=== PATIENT | female | born 1995 | race American Indian/Alaskan Native ===

== ENCOUNTER 2018-10-13 08:00 | Emergency (ER) | payer MEDICAID, OTHER ==
[2018-10-13 08:41] LABS: Basophils % (Auto) 0.3 % (0.0-1.8); Eosinophils # (Auto) 0.1 K/mm3 (0.0-0.4); Hematocrit 40.8 % (30.3-42.9); Hemoglobin 13.9 gm/dl (10.1-14.3); Lymphocytes # (Auto) 0.4 K/mm3 (1.2-5.4); Lymphocytes % (Auto) 4.1 % (13.4-35.0); Mean Corpuscular HGB Conc 34 % (30-34); Mean Corpuscular Volume 97 fl (79-97); Monocytes # (Auto) 0.6 K/mm3 (0.0-0.8); Monocytes % (Auto) 6.4 % (0.0-7.3); Platelet Count 300 K/mm3 (140-440); Red Blood Count 4.23 M/mm3 (3.65-5.03)
[2018-10-13 08:46] LABS: Bilirubin,Urine NEG (Negative); Blood,Urine NEG (Negative); Color,Urine Yellow (Yellow); Mucus,Urine FEW /HPF; Urobilinogen,Urine < 2.0 mg/dL (<2.0)
[2018-10-13 08:54] LABS: Alanine Aminotransferase 20 units/L (7-56); BUN/Creatinine Ratio 13; Blood Urea Nitrogen 9 mg/dL (7-17); Calcium 9.3 mg/dL (8.4-10.2); Hemolysis Index 61
[2018-10-13] MEDS ORDERED: ZOFRAN IV ONE ×2 (09:55→12:05)
[2018-10-13] MEDS ORDERED: NACL 0.9% 1000 ML 1,000 ML IV ONE (09:55)
[2018-10-13] MEDS ORDERED: LEVSIN SL SL ONE (09:55)
[2018-10-13 10:00] LABS: HCG Qualitative,Urine Negative (Negative)
--- NOTE | 2018-10-13 10:02 | Emergency Department Report ---
ED Abdominal Pain HPI - General Chief Complaint: Abdominal Pain Stated Complaint: BACK PAIN/VOMITING Time Seen by Provider: 10/13/18 09:38 Source: patient Mode of arrival: Ambulatory Limitations: No Limitations - History of Present Illness Initial Comments: 23-year-old -[place] female presents to the emergency room complaining of acute abdominal pain and chronic back pain. She also complains of nausea and vomiting since Sunday. Patient reports that the abdominal pain is crampy as constant worse with sitting and standing and better with rest. Patient denies any vaginal bleeding vaginal discharge. Patient is 0. Last menstrual period was 10/06/2018. Patient has a past medical history borderline diabetes has no surgical history smokes Black and miles. MD Complaint: abdominal pain Location: LUQ, epigastric Severity scale (0 -10): 8 Quality: cramping Consistency: constant Improves With: rest Worsens With: movement ( sitting and standing) Associated Symptoms: nausea, vomiting - Related Data LMP Date: 10/06/18 Previous Rx's Medication Instructions Recorded Last Taken Type Fexofenadine/Pseudoephedrine 1 each PO DAILY #30 tab.er.24h 12/26/15 Unknown Rx [Adrianna-D 24 Hour Tablet] Gentamicin 0.3% Ophth Soln 2 drops OP Q4H #1 bottle 12/26/15 Unknown Rx predniSONE [Deltasone] 20 mg PO QDAY #5 tab 12/26/15 Unknown Rx Dicyclomine [Bentyl] 10 mg PO QID #12 capsule 10/13/18 Unknown Rx Hyoscyamine Subl [Levsin Sl 0.125 0.125 mg SL Q6HR PRN #12 tab 10/13/18 Unknown Rx TAB] Ondansetron [Zofran Odt] 4 mg PO Q8HR PRN #12 tab.rapdis 10/13/18 Unknown Rx Allergies Allergy/AdvReac Type Severity Reaction Status Date / Time No Known Allergies Allergy Verified 01/31/14 10:22 ED Review of Systems ROS: Stated complaint: BACK PAIN/VOMITING Other details as noted in HPI Comment: All other systems reviewed and negative Gastrointestinal: abdominal pain, nausea, vomiting Musculoskeletal: back pain ED Past Medical Hx - Past Medical History Previous Medical History?: No Additional medical history: MORBID OBESITY - Surgical History Past Surgical History?: No Additional Surgical History: Romulus teeth removed - Social History Smoking Status: Never Smoker Substance Use Type: None - Medications Home Medications: Home Medications Medication Instructions Recorded Confirmed Last Taken Type Fexofenadine/Pseudoephedrine 1 each PO DAILY #30 tab.er.24h 12/26/15 Unknown Rx [Adrianna-D 24 Hour Tablet] Gentamicin 0.3% Ophth Soln 2 drops OP Q4H #1 bottle 12/26/15 Unknown Rx predniSONE [Deltasone] 20 mg PO QDAY #5 tab 12/26/15 Unknown Rx Dicyclomine [Bentyl] 10 mg PO QID #12 capsule 10/13/18 Unknown Rx Hyoscyamine Subl [Levsin Sl 0.125 0.125 mg SL Q6HR PRN #12 tab 10/13/18 Unknown Rx TAB] Ondansetron [Zofran Odt] 4 mg PO Q8HR PRN #12 tab.rapdis 10/13/18 Unknown Rx ED Physical Exam - General Limitations: No Limitations General appearance: alert, in no apparent distress - Head Head exam: Present: atraumatic, normocephalic - Eye Eye exam: Present: normal appearance - ENT ENT exam: Present: mucous membranes moist - Neck Neck exam: Present: normal inspection - Respiratory Respiratory exam: Present: normal lung sounds bilaterally. Absent: respiratory distress - Cardiovascular Cardiovascular Exam: Present: tachycardia - GI/Abdominal GI/Abdominal exam: Present: soft, tenderness (upper quadrant and epigastric), normal bowel sounds. Absent: distended - Extremities Exam Extremities exam: Present: normal inspection, full ROM - Neurological Exam Neurological exam: Present: alert, oriented X3 - Psychiatric Psychiatric exam: Present: normal affect, normal mood - Skin Skin exam: Present: warm, dry, intact, normal color. Absent: rash ED Course Vital Signs 10/13/18 08:11 Temperature 99.0 F Pulse Rate 105 H Respiratory 16 Rate Blood Pressure 173/84 O2 Sat by Pulse 98 Oximetry ED Medical Decision Making - Lab Data Result diagrams: 10/13/18 08:20 10/13/18 08:20 - Radiology Data Radiology results: report reviewed Patient: ALLISON RODGERS MR#: [id number] : 1995 Acct:[id number] Age/Sex: 23 / F ADM Date: 10/13/18 Loc: ED Attending Dr: Ordering Physician: MADONNA ALARCON Date of Service: 10/13/18 Procedure(s): CT abdomen pelvis w con Accession Number(s): [id number] cc: CONNOR CalderonMADONNA PERKINS CT ABDOMEN AND PELVIS WITH IV CONTRAST, 10/13/2018 INDICATION: Acute epigastric pain and nausea. TECHNIQUE: Following the administration of intravenous contrast, multiple axial CT images of the abdomen and pelvis were acquired. Sagittal and coronal reformats were obtained. All CT performed at this facility utilize dose reduction techniques including automated exposure control, iterative reconstruction and weight based dosing when appropriate to reduce patient radiation dose to as low as reasonably achievable. COMPARISON: No prior studies are available for comparison. FINDINGS: Limited imaging of the bilateral lung bases demonstrate no evidence of acute abnormality. Abdomen: The liver, gallbladder, spleen, pancreas, bilateral adrenal glands and bilateral kidneys show no evidence of acute abnormality. There is no evidence of bowel obs truction. The appendix is not clearly identified, but no right lower quadrant inflammatory changes are seen. Pelvis: The urinary bladder and uterus appear within normal limits. No large amount of free pelvic fluid is seen. Evaluation of bony structures demonstrates no evidence of acute bony ab normality. IMPRESSION: 1. No CT evidence of acute inflammatory or obstructive process within the abdomen or pelvis. Signer Name: Devi Weir MD Signed: 10/13/2018 11:04 AM Workstation Name: [id number] Transcribed By: EB Dictated By: Devi Weir MD Electronically Authenticated By: Devi Weir MD Signed Date/Time: 10/13/18 1104 DD/ 1100 TD/TT: Critical care attestation.: If time is entered above; I have spent that time in minutes in the direct care of this critically ill patient, excluding procedure time. ED Disposition Clinical Impression: Gastritis Disposition: DC-01 TO HOME OR SELFCARE Is pt being admited?: No Does the pt Need Aspirin: No Condition: Stable Instructions: Abdominal Pain (ED) Additional Instructions: Take medications as needed. Increase her fluid intake and then she as tolerated. Symptoms persisted gets worse please follow up with her primary care provider. Prescriptions: Dicyclomine [Bentyl] 10 mg PO QID #12 capsule Hyoscyamine Subl [Levsin Sl 0.125 TAB] 0.125 mg SL Q6HR PRN #12 tab PRN Reason: cramping Ondansetron [Zofran Odt] 4 mg PO Q8HR PRN #12 tab.rapdis PRN Reason: Nausea And Vomiting Referrals: ALYSON SPANGLER MD [Primary Care Provider] - 3-5 Days Forms: Work/School Release Form(ED)
[2018-10-13] MEDS ORDERED: IBUPROFEN PO ONE (10:35)
--- NOTE | 2018-10-13 11:08 | Cat Scan Report ---
CT ABDOMEN AND PELVIS WITH IV CONTRAST, 10/13/2018 INDICATION: Acute epigastric pain and nausea. TECHNIQUE: Following the administration of intravenous contrast, multiple axial CT images of the abdo men and pelvis were acquired. Sagittal and coronal reformats were obtained. All CT performed at this facility utilize dose reduction techniques including automated exposure control, iterative reconstru ction and weight based dosing when appropriate to reduce patient radiation dose to as low as reasonab ly achievable. COMPARISON: No prior studies are available for comparison. FINDINGS: Limited imaging of the bilateral lung bases demonstrate no evidence of acute abnormality. Abdomen: The liver, gallbladder, spleen, pancreas, bilateral adrenal glands and bilateral kidneys heather w no evidence of acute abnormality. There is no evidence of bowel obstruction. The appendix is not cl early identified, but no right lower quadrant inflammatory changes are seen. Pelvis: The urinary bladder and uterus appear within normal limits. No large amount of free pelvic fl uid is seen. Evaluation of bony structures demonstrates no evidence of acute bony abnormality. IMPRESSION: 1. No CT evidence of acute inflammatory or obstructive process within the abdomen or pelvis. Signer Name: Devi Weir MD Signed: 10/13/2018 11:04 AM Workstation Name: [id number]
[2018-10-13] MEDS ORDERED: MORPHINE IV ONE (12:05)
[2018-10-13 13:22] VITALS: BP 135/83
== END 2018-10-13 15:18 | disposition home or self-care (01) ==
LOC: ED 08:00
DX: K29.70 Gastritis, unspecified, without bleeding (principal); E66.01 Morbid (severe) obesity due to excess calories; Z68.43 Body mass index [BMI] 50.0-59.9, adult; Z79.899 Other long term (current) drug therapy
CPT/HCPCS: 36415; 74177; 80053; 81001; 81025; 83690; 85025; 96361; 96374; 96375; 96376; 99284; J2270; J2405; J7030; Q9967